=== PATIENT | female | born 1955 | race Caucasian/White ===

== ENCOUNTER 2021-07-14 18:05 | Emergency (ER) | payer OTHER ==
[2021-07-14] MEDS ORDERED: Sodium Chloride 0.9% 10 ML Syringe FLUSH PRN (18:10)
[2021-07-14] MEDS: Diltiazem 25 MG/5 ML SDV IVPUSH ONE ×2 (18:41→19:19)
[2021-07-14] MEDS: Albuterol/Ipratropium 3.0-0.5 MG/3 ML Neb Soln NEB ONE (18:43)
[2021-07-14] MEDS: methylPREDNISolone Sodium Succinate 125 MG/2 ML SDV IVPUSH STA (18:44)
[2021-07-14] MEDS: Metoprolol Tartrate 5 MG/5 ML SDV IVPUSH ONE (19:43)
[2021-07-14] MEDS: Metoprolol Tartrate 50 MG Tab PO STA ×2 (19:43→19:51)
[2021-07-14] MEDS: Metoprolol Tartrate 5 MG/5 ML SDV IVPUSH STA (19:51)
[2021-07-14] MEDS: Iopamidol 755 Mg/ML 100 ML Bottle IV ONE (20:17)
[2021-07-14] MEDS: Azithromycin 500 MG Tab PO STA (21:13)
[2021-07-14] MEDS: Apixaban 5 MG Tab PO STA (21:13)
== END 2021-07-14 21:30 | disposition home or self-care (01) ==
LOC: FB.ED 18:05
DX: I48.91 Unspecified atrial fibrillation (principal); J20.9 Acute bronchitis, unspecified; Z88.0 Allergy status to penicillin; Z79.899 Other long term (current) drug therapy
CPT/HCPCS: 36415; 71275; 83880; 85610; 85730; 94640; 96374; 96375; 96376; 99284; 99285-25; A9270-GY; J2930; J3490; J7620-GY; Q9967